=== PATIENT | female | born 1985 | race Caucasian/White ===

== ENCOUNTER 2020-01-28 16:14 | Outpatient (CLI) | payer OTHER, MEDICAID ==
[~2020-01-28 16:14] MED LIST: IBUP-1222 PO; OXYC-302 PO; PREN1TAB28 PO
== END 2020-01-28 21:18 | disposition home or self-care (01) ==
LOC: LDOP 16:14
PROVIDERS: ATTEND Obstetrics & Gynecology
DX: O09.893 Supervision of other high risk pregnancies, third trimester (principal); Z3A.36 36 weeks gestation of pregnancy
CPT/HCPCS: 36415; 59025; 76815; 84112; 85460

== ENCOUNTER → 2020-02-09 | Outpatient (CLI) | payer OTHER, MEDICAID | END | disposition home or self-care (01) | LOC: STAR 11:47 | PROVIDERS: ATTEND Obstetrics & Gynecology | DX: Z01.812 Encounter for preprocedural laboratory examination (principal); Z20.828 Contact with and (suspected) exposure to other viral communicable diseases | CPT/HCPCS: 36415; 87635 ==

== ENCOUNTER 2020-02-14 05:16 | Inpatient (IN) | payer OTHER, MEDICAID ==
[~2020-02-14] VITALS: Ht 160 cm; Wt 97.7 kg
[2020-02-14] MEDS ORDERED: OXYTOCIN 30U/ 0.9% NaCL 500ML 500 ML ONE ×2 (05:20→19:59)
[2020-02-14] MEDS ORDERED: NEWBORN KIT ONE (05:20)
[2020-02-14] MEDS ORDERED: LIDOCAINE 1%, 20ML ONE (05:20)
[2020-02-14] MEDS ORDERED: MISOPROSTOL 200 MCG TABLET ONE (05:20)
[2020-02-14 05:28] VITALS: BP 121/62
[2020-02-14] MEDS ORDERED: FENTANYL PF 100 MCG/2ML IVPush PRN (05:30)
[2020-02-14] MEDS ORDERED: TERBUTALINE 1 MG/ML, 1ML IVPush PRN (05:30)
[2020-02-14] MEDS ORDERED: FENTANYL PF 100 MCG/2ML IV PRN (05:30)
[2020-02-14] MEDS ORDERED: PENICILLIN GK 5,000,000 UNITS in DEXTROSE 5% 100 ML IVPB ONE (05:30)
[2020-02-14] MEDS ORDERED: ONDANSETRON 2MG/ML, 2ML IVPush PRN ×2 (05:30→13:00)
[2020-02-14] MEDS ORDERED: D5%-LACTATED RINGERS 1,000 ML IV SCH (05:30)
[2020-02-14] MEDS ORDERED: OXYTOCIN 30U/ 0.9% NaCL 500ML 500 ML IV ONE (05:30)
[2020-02-14] MEDS ORDERED: TERBUTALINE 1 MG/ML, 1ML SQ PRN (05:30)
[2020-02-14] MEDS ORDERED: CALCIUM CARBONATE 500 MG TAB.CHEW PO PRN (05:30)
[2020-02-14] MEDS ORDERED: OXYTOCIN 30U/ 0.9% NaCL 500ML 500 ML IV PRN (05:30)
[2020-02-14] MEDS: LACTATED RINGERS 1,000 ML IV SCH ×3 (05:47→12:21)
[2020-02-14 06:13] LABS: BASOPHILS % (AUTO) 1 % (0-1); EOSINOPHILS % (AUTO) 2 % (1-7); LYMPHOCYTES % (AUTO) 21 % (22-44); MEAN CORPUSCULAR HEMOGLOBIN 27.7 pg (27.0-34.8); MEAN CORPUSCULAR HGB CONC 32.7 g/dL (32.4-35.8); MEAN PLATELET VOLUME 7.7 fL (7.4-10.4); MONOCYTES % (AUTO) 9 % (2-9); NEUTROPHILS % (AUTO) 68 % (42-75); PLATELET COUNT 305 x10^3/uL (130-400); RED BLOOD COUNT 3.32 x10^6/uL (3.82-5.3); RED CELL DISTRIBUTION WIDTH 15.7 % (9.6-15.2)
[2020-02-14 06:21] LABS: MD NO
[2020-02-14] MEDS ORDERED: FLU VACC QS2020-21(6MOS UP)/PF 60MCG/0.5 ML SYR IM-VACC ONE (07:00)
[2020-02-14 07:51] LABS: AMPHETAMINE SCREEN, URINE Negative (Negative); BARBITURATE SCREEN, URINE Negative (Negative); BENZODIAZEPINE SCREEN, URINE Negative (Negative); CANNABINOID SCREEN, URINE Negative (Negative); COCAINE SCREEN, URINE Negative (Negative); METHADONE SCREEN, URINE Negative (Negative); OPIATE SCREEN, URINE Negative (Negative)
[2020-02-14] MEDS: PENICILLIN GK 2,500,000 UNITS in DEXTROSE 5% 100 ML IVPB SCH ×2 (09:59→14:12)
[2020-02-14] MEDS ORDERED: FENTANYL/BUPIV./NS/PF 250 ML EPIDCONT ONE (11:53)
[2020-02-14] MEDS ORDERED: BUPIVACAINE 0.25% ONE (12:17)
[2020-02-14] MEDS ORDERED: FENTANYL/BUPIV./NS/PF 250 ML EPIDCONT SCH (13:00)
[2020-02-14] MEDS ORDERED: LACTATED RINGERS 1,000 ML IVBOLUS PRN (13:00)
[2020-02-14] MEDS ORDERED: LACTATED RINGERS 1,000 ML IV SCH (13:00)
[2020-02-14] MEDS ORDERED: DIPHENHYDRAMINE 50 MG/ML, 1ML IVPush PRN (13:00)
[2020-02-14] MEDS ORDERED: EPHEDRINE 50 MG/ML, 1ML IVPush PRN (13:00)
[2020-02-14] MEDS ORDERED: NALOXONE 0.4 MG/ML, 1ML IVPush PRN (13:00)
[2020-02-14] MEDS ORDERED: OXYcodone IR 5MG TABLET PO PRN (17:00)
[2020-02-14] MEDS ORDERED: SIMETHICONE 80 MG CHEW TAB PO PRN (17:00)
[2020-02-14] MEDS ORDERED: ONDANSETRON 2MG/ML, 2ML IV PRN (17:00)
[2020-02-14] MEDS ORDERED: MISOPROSTOL 200 MCG TABLET PR PRN (17:00)
[2020-02-14] MEDS ORDERED: ACETAMINOPHEN 325 MG TABLET PO PRN (17:00)
[2020-02-14] MEDS ORDERED: IBUPROFEN 600 MG TABLET ONE (17:41)
[2020-02-14] MEDS: IBUPROFEN 600 MG TABLET PO PRN (17:42)
[2020-02-14] MEDS: OXYTOCIN 30U/ 0.9% NaCL 500ML 500 ML IV SCH (20:02)
[2020-02-14 20:30] VITALS: BP 90/51
[2020-02-15 00:45] VITALS: BP 106/68
[2020-02-15 01:29] LABS: BASOPHILS % (AUTO) 0 % (0-1); EOSINOPHILS % (AUTO) 1 % (1-7); LYMPHOCYTES % (AUTO) 16 % (22-44); MEAN CORPUSCULAR HEMOGLOBIN 26.5 pg (27.0-34.8); MEAN CORPUSCULAR HGB CONC 31.4 g/dL (32.4-35.8); MEAN PLATELET VOLUME 7.8 fL (7.4-10.4); MONOCYTES % (AUTO) 8 % (2-9); NEUTROPHILS % (AUTO) 75 % (42-75); PLATELET COUNT 279 x10^3/uL (130-400); RED BLOOD COUNT 3.32 x10^6/uL (3.82-5.3); RED CELL DISTRIBUTION WIDTH 16.1 % (9.6-15.2)
[2020-02-15 01:31] LABS: MD NO
[2020-02-15] MEDS: IBUPROFEN 600 MG TABLET PO PRN ×3 (01:36→16:17)
[2020-02-15] MEDS: OXYTOCIN 30U/ 0.9% NaCL 500ML 500 ML IV SCH ×3 (03:00→23:00)
[2020-02-15 04:00] VITALS: BP 110/73
[2020-02-15] MEDS: OXYcodone/APAP 5/325MG TABLET PO PRN ×3 (04:23→19:43)
[2020-02-15 07:20] VITALS: BP 126/85
[2020-02-15] MEDS: PRENATAL VIT/IRON/FA 1 EACH TABLET PO SCH (08:44)
[2020-02-15] MEDS: FERROUS SULFATE 325 MG TABLET PO SCH ×2 (08:44→16:17)
[2020-02-15] MEDS: DOCUSATE 100 MG CAPSULE PO PRN ×2 (08:44→19:44)
[2020-02-15 12:30] VITALS: BP 114/74
[2020-02-15 16:30] VITALS: BP 132/84
[2020-02-15 19:30] VITALS: BP 104/63
[2020-02-16] MEDS: IBUPROFEN 600 MG TABLET PO PRN (00:48)
[2020-02-16] MEDS: OXYTOCIN 30U/ 0.9% NaCL 500ML 500 ML IV SCH (01:37)
[2020-02-16] MEDS: OXYcodone/APAP 5/325MG TABLET PO PRN (05:40)
[2020-02-16] MEDS ORDERED: OXYC-302 PO (07:10)
[2020-02-16] MEDS ORDERED: IBUP-1222 PO (07:10)
[2020-02-16] MEDS ORDERED: FERR325T5 PO (07:10)
[2020-02-16] MEDS ORDERED: FLU VACC QS2020-21(6MOS UP)/PF 60MCG/0.5 ML SYR IM-VACC ONE (07:30)
[2020-02-16 07:55] VITALS: BP 117/64
[2020-02-16] MEDS: FERROUS SULFATE 325 MG TABLET PO SCH (08:00)
[2020-02-16] MEDS: PRENATAL VIT/IRON/FA 1 EACH TABLET PO SCH (09:00)
== END 2020-02-16 09:30 | disposition home or self-care (01) | DRG 806 ==
LOC: LDIP 05:16 → 2NW 20:03
PROVIDERS: ADMIT Obstetrics & Gynecology; ATTEND Obstetrics & Gynecology
PROC: 0HQ9XZZ Repair Perineum Skin, External Approach (ICD-10-PCS; principal; 2020-02-14)
PROC: 10E0XZZ Delivery of Products of Conception, External Approach (ICD-10-PCS; 2020-02-14)
PROC: 3E0R3BZ Introduction of Anesthetic Agent into Spinal Canal, Percutaneous Approach (ICD-10-PCS; 2020-02-14)
PROC: 00HU33Z Insertion of Infusion Device into Spinal Canal, Percutaneous Approach (ICD-10-PCS; 2020-02-14)
DX: O99.824 Streptococcus B carrier state complicating childbirth (principal); D62 Acute posthemorrhagic anemia; Z37.0 Single live birth; D50.9 Iron deficiency anemia, unspecified; O70.0 First degree perineal laceration during delivery; O99.02 Anemia complicating childbirth; Z20.828 Contact with and (suspected) exposure to other viral communicable diseases; Z3A.39 39 weeks gestation of pregnancy; Z87.891 Personal history of nicotine dependence; Z23 Encounter for immunization
CPT/HCPCS: 36415; 80307; 85025; 86592; 86850; 86900; 90686; G0378; J2540; J2590; J3010; J7120

== ENCOUNTER → 2020-06-14 | Outpatient (CLI) | payer OTHER, MEDICAID ==
[~2020-06-14] MED LIST changes: +CALC-603 PO; +FERR325T5 PO; -OXYC-302 PO; +OXYC1TAB14 PO
[2020-06-14 09:41] LABS: BASOPHILS % (AUTO) 1 % (0-1); EOSINOPHILS % (AUTO) 2 % (1-7); LYMPHOCYTES % (AUTO) 33 % (22-44); MEAN CORPUSCULAR HEMOGLOBIN 29.3 pg (27.0-34.8); MEAN CORPUSCULAR HGB CONC 33.4 g/dL (32.4-35.8); MEAN PLATELET VOLUME 8.4 fL (7.4-10.4); MONOCYTES % (AUTO) 6 % (2-9); NEUTROPHILS % (AUTO) 59 % (42-75); PLATELET COUNT 246 x10^3/uL (130-400); RED BLOOD COUNT 4.87 x10^6/uL (3.82-5.3); RED CELL DISTRIBUTION WIDTH 16.5 % (9.6-15.2)
[2020-06-14 09:45] LABS: MD NO
[2020-06-14 09:51] LABS: ALBUMIN 3.8 g/dL (3.4-5.0); ANION GAP 4 mmol/L (5-15); CALCIUM 9.3 mg/dL (8.5-10.1); CHLORIDE 110 mmol/L (98-107)
[2020-06-14 09:57] LABS: ALANINE AMINOTRANSFERASE 42 U/L (12-78); ALKALINE PHOSPHATASE 109 U/L (45-117); BILIRUBIN,TOTAL 0.5 mg/dL (0.2-1.0); CREATININE 0.87 mg/dL (0.55-1.02); TOTAL PROTEIN 7.7 g/dL (6.4-8.2)
[2020-06-14 09:59] LABS: MICROSCOPIC INDICATED
== END | disposition home or self-care (01) ==
LOC: STAR 07:47
PROVIDERS: ATTEND Obstetrics & Gynecology
DX: Z01.812 Encounter for preprocedural laboratory examination (principal); Z20.822 Contact with and (suspected) exposure to COVID-19
CPT/HCPCS: 36415; 80053; 81001; 84702; 85025; 87086; U0003

== ENCOUNTER 2020-06-20 07:56 | Day surgery (SDC) | payer OTHER, MEDICAID ==
[~2020-06-20] VITALS: Ht 160 cm; Wt 83.6 kg
[2020-06-20] MEDS ORDERED: CHLORHEXIDINE 15 ML UDC MM ONE (08:30)
[2020-06-20 08:39] VITALS: BP 109/79
[2020-06-20] MEDS ORDERED: NORG1TAB77 PO (08:42)
[2020-06-20] MEDS ORDERED: AMOXICILLIN PO (08:42)
[2020-06-20] MEDS ORDERED: LIDOCAINE-MPF 1%, 2ML INFIL ONE (09:00)
[2020-06-20] MEDS ORDERED: LACTATED RINGERS 1,000 ML IV SCH (10:00)
[2020-06-20] MEDS ORDERED: BUPIVACAINE/PF 0.25% ONE (10:33)
[2020-06-20] MEDS ORDERED: SILVER NITRATE STICK TP ONE (10:34)
[2020-06-20] MEDS ORDERED: EPINEPHRINE 1 MG/ML, 1ML ONE (10:34)
[2020-06-20] MEDS ORDERED: MIDAZOLAM 1 MG/ML, 2ML ONE (10:41)
[2020-06-20] MEDS ORDERED: FENTANYL PF 250 MCG/5ML ONE (10:41)
[2020-06-20] MEDS ORDERED: PROPOFOL 10 MG/ML, 20ML ONE (10:43)
[2020-06-20] MEDS ORDERED: LIDOCAINE-MPF 2% ,5ML ONE (10:43)
[2020-06-20] MEDS ORDERED: DEXAMETHASONE 4 MG/ML, 1ML ONE ×2 (10:44→11:01)
[2020-06-20] MEDS ORDERED: ROCURONIUM 10MG/ML,5ML ONE (11:01)
[2020-06-20] MEDS ORDERED: ONDANSETRON 2MG/ML, 2ML ONE (11:01)
[2020-06-20] MEDS ORDERED: GLYCOPYRROLATE 0.2MG/1ML, 5ML ONE (12:02)
[2020-06-20] MEDS ORDERED: SUGAMMADEX 200 MG/2 ML IVPush ONE (12:02)
[2020-06-20] MEDS ORDERED: SUCCINYLCHOLINE 20 MG/ML, 10ML ONE (12:02)
[2020-06-20] MEDS ORDERED: OXYcodone 5 MG/5 ML ORAL.SOL UDC ONE (12:51)
[2020-06-20] MEDS ORDERED: HYDROmorphone 1 MG/ML, 1ML INJ ONE (12:51)
[2020-06-20] MEDS ORDERED: FENTANYL PF 100 MCG/2ML ONE (12:51)
[2020-06-20] MEDS: FENTANYL PF 100 MCG/2ML IV PRN ×2 (12:52→13:00)
[2020-06-20] MEDS ORDERED: PROMETHAZINE 25 MG/ML, 1ML ONE (12:55)
[2020-06-20] MEDS ORDERED: LABETALOL 5MG/ML, 20ML IV PRN (13:00)
[2020-06-20] MEDS ORDERED: ONDANSETRON 2MG/ML, 2ML IVPush PRN (13:00)
[2020-06-20] MEDS ORDERED: ALBUTEROL SULFATE 2.5 MG/3 ML NPPB PRN (13:00)
[2020-06-20] MEDS ORDERED: DIAZEPAM 5 MG/ML, 2ML IVPush PRN (13:00)
[2020-06-20] MEDS ORDERED: HYDROmorphone 1 MG/ML, 1ML INJ IVPush PRN (13:00)
[2020-06-20] MEDS ORDERED: OXYcodone 5 MG/5 ML ORAL.SOL UDC PO PRN (13:00)
[2020-06-20] MEDS ORDERED: DIPHENHYDRAMINE 50 MG/ML, 1ML IVPush PRN ×2 (13:00)
[2020-06-20] MEDS ORDERED: MEPERIDINE/PF 25MG/0.5ML IVPush PRN (13:00)
[2020-06-20] MEDS ORDERED: ACETAMINOPHEN 325 MG TABLET PO PRN (13:00)
[2020-06-20] MEDS ORDERED: EPHEDRINE 50 MG/ML, 1ML IVPush PRN (13:00)
[2020-06-20] MEDS ORDERED: PROMETHAZINE 12.5 MG SUPP PR PRN (13:00)
[2020-06-20] MEDS ORDERED: MIDAZOLAM 1 MG/ML, 2ML IV PRN (13:00)
[2020-06-20] MEDS ORDERED: PROMETHAZINE 25 MG/ML, 1ML IVPush PRN (13:00)
[2020-06-20] MEDS ORDERED: hydrALAzine 20 MG/ML, 1ML IV PRN (13:00)
== END 2020-06-20 14:45 | disposition home or self-care (01) ==
LOC: OUT 07:56
PROVIDERS: ATTEND Obstetrics & Gynecology
DX: Z30.2 Encounter for sterilization (principal); F32.9 Major depressive disorder, single episode, unspecified; F41.9 Anxiety disorder, unspecified; G43.909 Migraine, unspecified, not intractable, without status migrainosus; Z79.899 Other long term (current) drug therapy; Z98.890 Other specified postprocedural states
CPT/HCPCS: 36415; 58670; 81025; 86850; 86900; J0171; J0330; J1100; J2250; J2405; J2550; J2704; J3010; J7120